=== PATIENT | male | born 1950 | race Caucasian/White ===

== ENCOUNTER → 2017-03-03 | Outpatient (CLI) | payer MEDICARE, OTHER ==
--- NOTE | 2017-03-04 14:29 | REP ---
Clinical: Contusion. Technique: AP and lateral views of the left tibia / fibula. Findings: Osseous structures, joint spaces, and surrounding soft tissues are normal. No acute fracture dislocation. No subcutaneous emphysema or radiodense foreign body. Impression: Normal left tibia / fibula radiographs. No acute fracture dislocation. Signed by Joni Sarmiento MD 03/03/2017 09:12 P
== END ==
LOC: M WUC 10:31
PROVIDERS: ATTEND Physician Assistant
DX: S80.12XA Contusion of left lower leg, initial encounter (principal); X58.XXXA Exposure to other specified factors, initial encounter; Y92.89 Other specified places as the place of occurrence of the external cause; Y93.89 Activity, other specified; Y99.8 Other external cause status